=== PATIENT | female | born 1940 | race Caucasian/White ===

== ENCOUNTER → 2017-04-14 | Outpatient (CLI) | payer OTHER, MEDICARE ==
--- NOTE | ~2017-04-14 | CNG ---
[facility] [place] [address] CYTO-NONGYN REPORT PROCEDURE Name: FAVIANTOSHIA R Room #: REG [facility] Bj.#: [id number] Admission: 04/14/17 Date of : 44 Discharge: Report #: [id number] Path Case #: [id number] CYTOPATHOLOGY REPORT COLLECTION DATE: 04/14/2017 RECEIVED DATE: 04/14/2017 SUBMITTING PHYS: Dr. Samantha Barlow OTHER PHYS: Dr Suze Chowdary CLINICAL HISTORY: Pulm infiltrates. SOB. SPECIMEN(S) RECEIVED: A.Sputum * * * * * * * * * * * * FINAL DIAGNOSIS: A. Sputum: - No malignant epithelial cells identified. Numerous squamous epithelial cells as well as bacterial aggregates present (compatible with oral contamination). No alveolar macrophages present. PATHOLOGIST: Amalia Merchant M.D. REPORT ELECTRONICALLY SIGNED BY: Amalia Merchant M.D. DATE/TIME: 04/15/2017 15:43 * * * * * * * * * * * * GROSS PATHOLOGY: A. Sputum: The specimen is submitted unfixed, labeled "Toshia Gusman". Received by the Cytology Department is four mL of cloudy fluid. One ThinPrep slide was prepared. (clt 04.14.2017) FAUCET POLISHER(S): ELSY Batista[facility] INITIAL CPT CODE(S): A; 78166 Professional services performed by [facility] at [facility] [address], [place] [address] Technical services performed by [facility] at [address] [place] [address]., [address], [place] [address]. [facility] [address] [place] [address], [facility] [address] [place], [place] [address] [place] [address] [place] [address] CYTO-NONGYN REPORT PROCEDURE Name: TOSHIA GUSMAN [facility] [id number] Admission: 04/14/17 Date of : 44 Discharge: Report #: [id number] Path Case #: [id number] PHONE: [phone] DIRECTOR: George Smith M.D. * * * END OF REPORT * * *
== END ==
LOC: ULTRA 07:07
DX: K76.89 Other specified diseases of liver (principal); R06.02 Shortness of breath; R91.8 Other nonspecific abnormal finding of lung field; R05 Cough

== ENCOUNTER → 2017-04-18 | Outpatient (CLI) | payer OTHER, MEDICARE | LOC: PUL 08:25 | DX: R05 Cough (principal) ==

== ENCOUNTER → 2017-05-02 | Outpatient (CLI) | payer OTHER, MEDICARE ==
--- NOTE | ~2017-05-02 | CNG ---
[facility] [place] [address] CYTO-NONGYN REPORT PROCEDURE Name: TOSHIA BALLESTEROS [id number] Admission: 05/02/17 Date of : 44 Discharge: Report #: [id number] Path Case #: [id number] CYTOPATHOLOGY REPORT COLLECTION DATE: 05/02/2017 RECEIVED DATE: 05/02/2017 SUBMITTING PHYS: Dr. Samantha Barlow OTHER PHYS: Dr Suze Chowdary CLINICAL HISTORY: Pulmonary infiltrates, nodules. SPECIMEN(S) RECEIVED: A.Bronchial brushings, Right B.Bronchial brush rinse C.Bronchial brushings, Left D.Bronchial washing, Left lung E.Bronchial washing, Right lung * * * * * * * * * * * * FINAL DIAGNOSIS: A. Lung, Right, Bronchial brushings: - No malignant cells identified. Normal bronchial cells are present. B. Lung, Bronchial brush rinse: - No malignant cells identified. - Bronchial epithelial cells, alveolar macrophages, and few squamous cells present. C. Lung, Left, Bronchial brushings: - No malignant cells identified. - Bronchial epithelial cells, alveolar macrophages, and few squamous cells present. D. Lung, Left lung, Bronchial washing: - No malignant cells identified. - Bronchial epithelial cells, abundant alveolar macrophages, and few squamous cells present. E. Lung, Right lung, Bronchial washing: - No malignant cells identified. - Bronchial epithelial cells, alveolar macrophages, and few squamous cells present. PATHOLOGIST: Amalia Merchant M.D. REPORT ELECTRONICALLY SIGNED BY: Amalia Merchant M.D. DATE/TIME: 05/06/2017 17:03 * * * * * * * * * * * * GROSS PATHOLOGY: A. Bronchial brushings, Right: The specimen is labeled "Uzma Toshia R" and consists of two fixed slides. B. Bronchial brush rinse: The specimen is labeled "Phister, Toshia R" and consists of a brush tip in fixative. One ThinPrep slide was prepared. C. Bronchial brushings, Left: The specimen is labeled "[place], [facility] [address] [place] [address] CYTO-NONGYN REPORT PROCEDURE Name: XAVIER BALLESTEROSNA R [facility] [id number] Admission: 05/02/17 Date of : 44 Discharge: Report #: [id number] Path Case #: [id number] Toshia R" and consists of two fixed slides. D. Bronchial washing, Left lung: The specimen is submitted unfixed, labeled "Phister, Toshia R". Received by the Cytology Department is 15 mL of cloudy fluid. One ThinPrep slide was prepared. E. Bronchial washing, Right lung: The specimen is submitted unfixed, labeled "Phister, Toshia R". Received by the Cytology Department is 15 mL of cloudy fluid. One ThinPrep slide was prepared. (clt 05.02.2017) SCAFFOLDING HELPER(S): ELSY Batista[facility] INITIAL CPT CODE(S): A; 44225 B; 64472 C; 64760 D; 65625 E; 08749 Professional services performed by [facility] at [facility] [address], [place] [address] Technical services performed by [facility] at [address] [place] [address], [address], [place] [address]. [facility] [address] [place] [address], [address] [place] [address] PHONE: [phone] DIRECTOR: George Smith M.D. * * * END OF REPORT * * *
--- NOTE | ~2017-05-02 | P ---
[facility] [place] [address] PROCEDURE REPORT Name: SHAYNA BALLESTEROS Room #: REG [facility].#: [id number] Admission: 05/02/17 Attend Phys: Samantha Barlow MD Discharge: Date of : 44 Report #: [id number] THIS REPORT FOR: //name// CC: Samantha Chowdary PROCEDURE: Fiberoptic bronchoscopy. INDICATION: Pulmonary infiltrates/nodules. PROCEDURE DIAGNOSIS: No endobronchial lesion seen. COMPLICATIONS: None. BLEEDING: None. SPECIMEN SENT TO LABORATORY: Included brushings, rinse and washing. DESCRIPTION OF PROCEDURE: The patient was informed of risks and benefits. The procedure was done in catheterization lab 3. The patient was initially given aerosol lidocaine, premedicated with Versed and fentanyl. Bronchoscope was passed. Vocal cords moved normally. Airway was clear. Main geoff was sharp. Right and left were evaluated and no endobronchial lesion seen. There were brushings done both on right and left as well as washes. The patient tolerated the procedure well and discussed with the patient and post procedure. By: [id number] Samantha Barlow MD /nt
== END | disposition home or self-care (01) ==
LOC: CATH 04-24 06:58
DX: R91.8 Other nonspecific abnormal finding of lung field (principal)

== ENCOUNTER → 2017-05-08 | Outpatient (CLI) | payer OTHER, MEDICARE | LOC: CAT 09:01 | DX: J47.9 Bronchiectasis, uncomplicated (principal); E04.1 Nontoxic single thyroid nodule; R91.1 Solitary pulmonary nodule ==

== ENCOUNTER → 2017-11-04 | Outpatient (CLI) | payer OTHER, MEDICARE | LOC: RAD 10:31 | DX: R06.00 Dyspnea, unspecified (principal) ==

== ENCOUNTER → 2018-11-20 | Outpatient (CLI) | payer OTHER, MEDICARE | LOC: RAD 14:27 | DX: R91.8 Other nonspecific abnormal finding of lung field (principal) ==

== ENCOUNTER → 2019-09-18 | Outpatient (CLI) | payer OTHER, MEDICARE | LOC: RAD 08:53 | DX: R06.02 Shortness of breath (principal) ==

== ENCOUNTER → 2019-09-24 | Outpatient (CLI) | payer OTHER, MEDICARE | LOC: CAT 10:50 | DX: J47.9 Bronchiectasis, uncomplicated (principal); R91.8 Other nonspecific abnormal finding of lung field; R91.1 Solitary pulmonary nodule; J98.11 Atelectasis; K76.89 Other specified diseases of liver; E04.9 Nontoxic goiter, unspecified ==

== ENCOUNTER 2020-03-07 17:01 | Emergency (ER) | payer OTHER, MEDICARE ==
[~2020-03-07] VITALS: Ht 170.2 cm; Wt 57.1 kg
[2020-03-07] MEDS ORDERED: ATORVASTATIN CA20 MG PO (17:07)
[2020-03-07] MEDS ORDERED: TEMAZEPAM15 MG PO (17:08)
[2020-03-07] MEDS ORDERED: NORCO 5-325 TA1 EAC2 PO (19:01)
[2020-03-07 19:43] VITALS: BP 130/50
== END 2020-03-07 19:39 | disposition home or self-care (01) ==
LOC: ER 17:01
DX: S93.402A Sprain of unspecified ligament of left ankle, initial encounter (principal); M79.672 Pain in left foot; E78.5 Hyperlipidemia, unspecified; Z79.899 Other long term (current) drug therapy; X50.1XXA Overexertion from prolonged static or awkward postures, initial encounter; Y93.89 Activity, other specified; Y92.89 Other specified places as the place of occurrence of the external cause; Y99.8 Other external cause status

== ENCOUNTER → 2020-09-08 | Outpatient (CLI) | payer OTHER, MEDICARE ==
[~2020-09-08] MED LIST: ATORVASTATIN CA20 MG PO; NORCO 5-325 TA1 EAC2 PO; TEMAZEPAM15 MG PO
== END ==
LOC: CAT 13:52
PROVIDERS: ATTEND Internal Medicine
DX: R91.8 Other nonspecific abnormal finding of lung field (principal); K76.89 Other specified diseases of liver; J98.4 Other disorders of lung

== ENCOUNTER → 2021-09-07 | Outpatient (CLI) | payer OTHER, MEDICARE | LOC: CAT 09:27 | PROVIDERS: ATTEND Internal Medicine | DX: J84.89 Other specified interstitial pulmonary diseases (principal); R91.8 Other nonspecific abnormal finding of lung field ==